=== PATIENT | female | born 1945 | race Caucasian/White ===

== ENCOUNTER 2019-10-29 22:21 | Observation (INO) ==
[2019-10-29 23:34] LABS: Basophils % 0.2 %; Eosinophils % 0.2 %; Hematocrit 30.8 % (35.3-44.9); Hemoglobin 10.4 g/dL (11.5-15.4); Immature Granulocytes % 0.7 % (0-4); Lymphocytes # 0.4 K/mcL (0.6-4.6); Mean Corpuscular HGB Conc 33.8 g/dL (31.6-35.5); Mean Corpuscular Hemoglobin 29.1 pg (28.0-33.3); Mean Platelet Volume 10.2 fL (9.4-12.4); Monocytes # 0.4 K/mcL (0.0-1.3); Monocytes % 3.8 %; Neutrophils # 9.4 K/mcL (1.6-8.9); Platelet Count 225 K/mcL (140-400); Red Blood Count 3.58 M/mcL (3.82-4.97); Red Cell Distribution Width 14.4 % (11.5-14.5); Segmented Neutrophils % 91.1 %; White Blood Count 10.3 K/mcL (4.3-11.1)
[2019-10-29 23:36] LABS: INR 1.2; Prothrombin Time 13.8 Seconds (9.4-12.1)
[2019-10-29 23:39] LABS: Activated Partial Thrombo Time 27.3 Seconds (26.0-36.0)
[2019-10-29 23:46] LABS: Alanine Aminotransferase 7 Units/L (7-52); Albumin 3.7 g/dL (3.5-5.7); Albumin/Globulin Ratio 1.3 (1.1-2.2); Alkaline Phosphatase 80 Units/L (34-104); Aspartate Amino Transferase 9 Units/L (13-39); BUN/Creatinine Ratio 19 (6-26); Bilirubin,Total 0.4 mg/dL (0.3-1.0); Blood Urea Nitrogen 16 mg/dL (8-23); Carbon Dioxide 21 mEq/L (23-29); Chloride 101 mEq/L (98-107); Globulin 2.8 g/dL (2.4-3.5); Glucose 160 mg/dL (70-105); Osmolality,Calculated 277 (280-300); Sodium 131 mEq/L (136-145); Total Protein 6.5 g/dL (6.4-8.9); eGFR For African Americans > 60 (> 60); eGFR For Non-African Americans > 60 (> 60)
[2019-10-29 23:47] LABS: Troponin I < 0.03 ng/mL (< 0.04)
[2019-10-30 00:14] LABS: Bilirubin,Urine Negative (Negative); Blood,Urine Small (Negative); Clarity,Urine Clear (Clear); Color,Urine Yellow (Yellow); Glucose,Urine (UA) Normal (Normal); Ketones,Urine 15 mg/dL (Negative); Leukocyte Esterase,Urine Small (Negative); Nitrite,Urine Positive (Negative); PH,Urine 5.5 pH Units (5.0-8.0); Protein,Urine 100 mg/dL (Neg-Trace); Urobilinogen,Urine Normal (Normal)
[2019-10-30 00:22] LABS: Squamous Epithelial Cell,Urine Many per lpf (None-Few); WBC,Urine 30-50 per hpf (0-3)
[2019-10-30 00:23] LABS: Bacteria,Urine Many per hpf (None-Few)
[2019-10-30] MEDS ORDERED: cefTRIAXone 1,000 MG in Water for inj. (sterile) 10 ML IVP ONE (01:00)
[2019-10-30] MEDS ORDERED: cefTRIAXone 2,000 MG in Water for inj. (sterile) 20 ML IVP ONE (01:22)
[2019-10-30] MEDS ORDERED: D5% in 0.45% NACL 1,000 ML IVC SCH (02:19)
[2019-10-30] MEDS ORDERED: Ondansetron ODT 4 MG TAB.RAPDIS SL PRN (02:19)
[2019-10-30] MEDS ORDERED: Mag Hydrox/Al Hydrox/Simeth 30 ML UDC PO PRN (02:19)
[2019-10-30] MEDS ORDERED: Naloxone 0.4 MG/ML INJ IVP PRN (02:19)
[2019-10-30] MEDS: FISH OIL 500 MG PO SCH ×2 (07:38→19:33)
[2019-10-30] MEDS: Aspirin 81 MG TAB.CHEW PO SCH (07:39)
[2019-10-30] MEDS: Multivit/Ca/Min/Fe/FA 1 TAB TABLET PO SCH (07:39)
[2019-10-30] MEDS: Cholecalciferol (D-3) 1,000 UNIT (25MCG) TABLET PO SCH (07:39)
[2019-10-30] MEDS: 0.9 % Sodium Chloride w KCl 20 MEQ/1,000 ML MLS IVC SCH (09:14)
[2019-10-30] MEDS: Nystatin POWDER 30 GM BOTTLE TP SCH ×2 (11:30→19:33)
[2019-10-30] MEDS: cefTRIAXone 1,000 MG in Water for inj. (sterile) 10 ML IVP SCH (17:16)
[2019-10-30] MEDS: *HR* Enoxaparin 40 MG/0.4 ML SYRINGE SQ SCH (17:17)
[2019-10-30] MEDS ORDERED: cefTRIAXone 1,000 MG in Water for inj. (sterile) 10 ML IVP SCH (18:00)
[2019-10-30] MEDS: Acetaminophen 325 MG TABLET PO PRN (23:43)
[2019-10-31] MEDS: 0.9 % Sodium Chloride w KCl 20 MEQ/1,000 ML MLS IVC SCH (05:21)
[2019-10-31 05:45] LABS: Hemoglobin 10.3 g/dL (11.5-15.4); Mean Corpuscular HGB Conc 32.2 g/dL (31.6-35.5); Mean Corpuscular Hemoglobin 28.6 pg (28.0-33.3); Mean Corpuscular Volume 88.9 fL (83.0-100.0); Mean Platelet Volume 9.9 fL (9.4-12.4); Platelet Count 207 K/mcL (140-400); Red Cell Distribution Width 14.6 % (11.5-14.5); White Blood Count 6.5 K/mcL (4.3-11.1)
[2019-10-31 06:01] LABS: Alanine Aminotransferase 8 Units/L (7-52); Albumin 3.3 g/dL (3.5-5.7); Albumin/Globulin Ratio 1.2 (1.1-2.2); Alkaline Phosphatase 82 Units/L (34-104); Aspartate Amino Transferase 12 Units/L (13-39); BUN/Creatinine Ratio 14 (6-26); Bilirubin,Total 0.3 mg/dL (0.3-1.0); Blood Urea Nitrogen 12 mg/dL (8-23); Calcium 8.9 mg/dL (8.6-10.3); Carbon Dioxide 24 mEq/L (23-29); Chloride 107 mEq/L (98-107); Globulin 2.7 g/dL (2.4-3.5); Glucose 102 mg/dL (70-105); Osmolality,Calculated 286 (280-300); Potassium 3.7 mEq/L (3.5-5.1); Sodium 138 mEq/L (136-145); eGFR For African Americans > 60 (> 60); eGFR For Non-African Americans > 60 (> 60)
[2019-10-31] MEDS: FISH OIL 500 MG PO SCH ×2 (08:47→20:03)
[2019-10-31] MEDS: Nystatin POWDER 30 GM BOTTLE TP SCH ×2 (09:04→20:02)
[2019-10-31] MEDS: Aspirin 81 MG TAB.CHEW PO SCH (09:04)
[2019-10-31] MEDS: Multivit/Ca/Min/Fe/FA 1 TAB TABLET PO SCH (09:04)
[2019-10-31] MEDS: Cholecalciferol (D-3) 1,000 UNIT (25MCG) TABLET PO SCH (09:04)
[2019-10-31] MEDS: *HR* Enoxaparin 40 MG/0.4 ML SYRINGE SQ SCH (17:18)
[2019-10-31] MEDS: cefTRIAXone 1,000 MG in Water for inj. (sterile) 10 ML IVP SCH (17:18)
[2019-10-31] MEDS: Acetaminophen 325 MG TABLET PO PRN (20:01)
[2019-11-01] MEDS: 0.9 % Sodium Chloride w KCl 20 MEQ/1,000 ML MLS IVC SCH (03:54)
[2019-11-01] MEDS: Aspirin 81 MG TAB.CHEW PO SCH (08:06)
[2019-11-01] MEDS: Multivit/Ca/Min/Fe/FA 1 TAB TABLET PO SCH (08:06)
[2019-11-01] MEDS: Cholecalciferol (D-3) 1,000 UNIT (25MCG) TABLET PO SCH (08:06)
[2019-11-01] MEDS: FISH OIL 500 MG PO SCH (08:07)
[2019-11-01] MEDS: Nystatin POWDER 30 GM BOTTLE TP SCH ×2 (08:09→21:09)
[2019-11-01 09:01] LABS: % Iron Saturation 7 % (15-50); Iron 15 mcg/dL (50-170); Transferrin 157 mg/dL (203-362)
[2019-11-01] MEDS: cefTRIAXone 1,000 MG in Water for inj. (sterile) 10 ML IVP SCH ×2 (17:50→21:00)
[2019-11-01] MEDS: *HR* Enoxaparin 40 MG/0.4 ML SYRINGE SQ SCH (17:50)
[2019-11-01] MEDS ORDERED: *HR* Labetalol 20 MG/4 ML SYRINGE IVP PRN (20:00)
[2019-11-02 05:46] LABS: Basophils % 0.7 %; Eosinophils # 0.2 K/mcL (0.0-0.6); Eosinophils % 5.1 %; Hematocrit 27.9 % (35.3-44.9); Hemoglobin 9.2 g/dL (11.5-15.4); Immature Granulocytes % 0.5 % (0-4); Lymphocytes # 0.9 K/mcL (0.6-4.6); Lymphocytes % 21.7 %; Mean Corpuscular Hemoglobin 28.7 pg (28.0-33.3); Mean Corpuscular Volume 86.9 fL (83.0-100.0); Mean Platelet Volume 10.1 fL (9.4-12.4); Monocytes # 0.3 K/mcL (0.0-1.3); Monocytes % 7.2 %; Neutrophils # 2.8 K/mcL (1.6-8.9); Platelet Count 239 K/mcL (140-400); Red Blood Count 3.21 M/mcL (3.82-4.97); Red Cell Distribution Width 14.1 % (11.5-14.5); Segmented Neutrophils % 64.8 %; White Blood Count 4.3 K/mcL (4.3-11.1)
[2019-11-02 06:00] LABS: BUN/Creatinine Ratio 18 (6-26); Blood Urea Nitrogen 14 mg/dL (8-23); Calcium 8.7 mg/dL (8.6-10.3); Carbon Dioxide 26 mEq/L (23-29); Chloride 106 mEq/L (98-107); Glucose 103 mg/dL (70-105); Osmolality,Calculated 291 (280-300); Potassium 3.5 mEq/L (3.5-5.1); Sodium 140 mEq/L (136-145); eGFR For African Americans > 60 (> 60); eGFR For Non-African Americans > 60 (> 60)
[2019-11-02] MEDS ORDERED: amLODIPine 5 MG TABLET PO SCH (09:00)
[2019-11-02] MEDS: Multivit/Ca/Min/Fe/FA 1 TAB TABLET PO SCH (09:05)
[2019-11-02] MEDS: Nystatin POWDER 30 GM BOTTLE TP SCH (09:06)
[2019-11-02] MEDS: Cholecalciferol (D-3) 1,000 UNIT (25MCG) TABLET PO SCH (09:06)
[2019-11-02] MEDS: Aspirin 81 MG TAB.CHEW PO SCH (09:06)
[2019-11-02 11:48] VITALS: BP 127/72
== END 2019-11-02 14:17 | disposition home or self-care (01) ==
LOC: EMEROOGRE 22:21 → INPGRE 22:21
PROVIDERS: ADMIT Family Medicine; ATTEND Family Medicine

== ENCOUNTER 2021-07-31 23:00 | Inpatient (IN) ==
[2021-07-31] MEDS ORDERED: 0.9 % Sodium Chloride 1,000 ML IVC ONE (23:26)
[2021-08-01 00:26] LABS: Basophils # 0.1 K/mcL (0.0-0.2); Basophils % 0.4 %; Eosinophils # 0.1 K/mcL (0.0-0.6); Eosinophils % 0.4 %; Hematocrit 36.8 % (35.3-44.9); Hemoglobin 11.5 g/dL (11.5-15.4); Immature Granulocytes % 0.5 % (0-4); Lymphocytes # 0.5 K/mcL (0.6-4.6); Lymphocytes % 4.6 %; Mean Corpuscular HGB Conc 31.3 g/dL (31.6-35.5); Mean Corpuscular Hemoglobin 29.6 pg (28.0-33.3); Mean Corpuscular Volume 94.6 fL (83.0-100.0); Mean Platelet Volume 9.8 fL (9.4-12.4); Monocytes # 0.4 K/mcL (0.0-1.3); Monocytes % 3.5 %; Platelet Count 367 K/mcL (140-400); Red Blood Count 3.89 M/mcL (3.82-4.97); Segmented Neutrophils % 90.6 %; White Blood Count 11.5 K/mcL (4.3-11.1)
[2021-08-01 00:29] LABS: Neutrophils # 10.4 K/mcL (1.6-8.9)
[2021-08-01 00:32] LABS: INR 1.1; Prothrombin Time 12.4 Seconds (9.4-12.1)
[2021-08-01 00:35] LABS: Activated Partial Thrombo Time 29.2 Seconds (26.0-36.0)
[2021-08-01 00:40] LABS: VBG HCO3 21 mEq/L (21-27); VBG PCO2 44 mmHg (41-51); VBG PO2 23 mmHg (25-50)
[2021-08-01 00:43] LABS: Troponin I < 0.03 ng/mL (< 0.04)
[2021-08-01] MEDS ORDERED: Isovue-370 500 ML BOTTLE IVP ONE (00:54)
[2021-08-01 01:19] LABS: Blood Urea Nitrogen 27 mg/dL (8-23); Calcium 9.4 mg/dL (8.6-10.3); Chloride 104 mEq/L (98-107); Glucose 130 mg/dL (70-105); Osmolality,Calculated 283 (280-300); Potassium 5.3 mEq/L (3.5-5.1); Sodium 133 mEq/L (136-145)
[2021-08-01 02:40] LABS: Bilirubin,Urine Moderate (Negative); Blood,Urine Negative (Negative); Clarity,Urine Clear (Clear); Color,Urine Yellow (Yellow); Glucose,Urine (UA) Normal (Normal); Ketones,Urine 15 mg/dL (Negative); Leukocyte Esterase,Urine Negative (Negative); Nitrite,Urine Negative (Negative); PH,Urine 5.5 pH Units (5.0-8.0); Protein,Urine 100 mg/dL (Neg-Trace); Specific Gravity,Urine >= 1.030 (1.010-1.025); Urobilinogen,Urine Normal (Normal)
[2021-08-01 02:45] LABS: BUN/Creatinine Ratio 19 (6-26); Carbon Dioxide 18 mEq/L (23-29); eGFR For African Americans 45 (> 60); eGFR For Non-African Americans 37 (> 60)
[2021-08-01 02:48] LABS: Bacteria,Urine None Seen per hpf (None-Few); Hyaline Casts,Urine Few per lpf (None Seen); RBC,Urine 0-3 per hpf (0-3); Squamous Epithelial Cell,Urine Few per hpf (None-Few)
[2021-08-01] MEDS ORDERED: Insulin Human Regular 10 UNIT in 0.9 % Sodium Chloride 10 ML IV ONE (02:49)
[2021-08-01] MEDS ORDERED: *HR* Dextrose 50 % in Water (Vial) 50 ML VIAL IVP ONE (02:49)
[2021-08-01] MEDS ORDERED: Albuterol 2.5 MG/3 ML NEBULIZER IH ONE (02:49)
[2021-08-01] MEDS ORDERED: *HR* OxyCODONE/APAP 5/325 TABLET PO ONE (03:35)
[2021-08-01] MEDS ORDERED: Ondansetron ODT 4 MG TAB.RAPDIS SL ONE (03:35)
[2021-08-01] MEDS: atenoloL 50 MG TABLET PO SCH (08:55)
[2021-08-01] MEDS: Sennosides/Docusate Sodium TABLET PO SCH ×2 (08:56→20:34)
[2021-08-01] MEDS: Ondansetron ODT 4 MG TAB.RAPDIS SL PRN (12:35)
[2021-08-01] MEDS: Ondansetron 4 MG/2 ML VIAL IVP PRN ×2 (13:41→18:51)
[2021-08-01] MEDS: Gabapentin 100 MG CAPSULE PO SCH (20:34)
[2021-08-01] MEDS: Fluconazole 100 MG TABLET PO SCH (20:35)
[2021-08-01] MEDS: *HR* OxyCODONE/APAP 5/325 TABLET PO PRN (23:17)
[2021-08-02] MEDS: *HR* Enoxaparin 40 MG/0.4 ML SYRINGE SQ SCH (05:14)
[2021-08-02] MEDS: *HR* OxyCODONE/APAP 5/325 TABLET PO PRN ×3 (05:14→21:06)
[2021-08-02 06:10] LABS: Hematocrit 30.5 % (35.3-44.9); Hemoglobin 9.4 g/dL (11.5-15.4); Mean Corpuscular HGB Conc 30.8 g/dL (31.6-35.5); Mean Corpuscular Hemoglobin 29.1 pg (28.0-33.3); Mean Corpuscular Volume 94.4 fL (83.0-100.0); Platelet Count 268 K/mcL (140-400); Red Blood Count 3.23 M/mcL (3.82-4.97); Red Cell Distribution Width 15.3 % (11.5-14.5); White Blood Count 5.5 K/mcL (4.3-11.1)
[2021-08-02 06:32] LABS: Albumin 3.3 g/dL (3.5-5.7); Albumin/Globulin Ratio 1.3 (1.1-2.2); Bilirubin,Total 0.4 mg/dL (0.3-1.0); Calcium 8.7 mg/dL (8.6-10.3); Globulin 2.5 g/dL (2.4-3.5); Magnesium 2.2 mg/dL (1.6-2.6); Potassium 4.4 mEq/L (3.5-5.1); Total Protein 5.8 g/dL (6.4-8.9)
[2021-08-02] MEDS: atenoloL 50 MG TABLET PO SCH (09:38)
[2021-08-02] MEDS: Gabapentin 100 MG CAPSULE PO SCH ×3 (09:38→21:05)
[2021-08-02] MEDS: Sennosides/Docusate Sodium TABLET PO SCH ×2 (09:45→21:05)
[2021-08-02] MEDS ORDERED: 0.9 % Sodium Chloride 1,000 ML IVC SCH (16:15)
[2021-08-02] MEDS: Fluconazole 100 MG TABLET PO SCH (21:05)
[2021-08-02] MEDS: Ondansetron ODT 4 MG TAB.RAPDIS SL PRN (21:17)
[2021-08-03] MEDS: *HR* OxyCODONE/APAP 5/325 TABLET PO PRN ×3 (04:09→23:58)
[2021-08-03] MEDS: Ondansetron ODT 4 MG TAB.RAPDIS SL PRN ×2 (04:13→13:08)
[2021-08-03] MEDS: *HR* Enoxaparin 40 MG/0.4 ML SYRINGE SQ SCH (05:18)
[2021-08-03 07:30] LABS: Basophils % 0.4 %; Eosinophils # 0.2 K/mcL (0.0-0.6); Hematocrit 31.5 % (35.3-44.9); Hemoglobin 9.6 g/dL (11.5-15.4); Immature Granulocytes % 0.4 % (0-4); Lymphocytes # 1.1 K/mcL (0.6-4.6); Lymphocytes % 24.4 %; Mean Corpuscular HGB Conc 30.5 g/dL (31.6-35.5); Mean Corpuscular Hemoglobin 29.4 pg (28.0-33.3); Mean Corpuscular Volume 96.3 fL (83.0-100.0); Mean Platelet Volume 10.4 fL (9.4-12.4); Monocytes # 0.3 K/mcL (0.0-1.3); Monocytes % 5.8 %; Neutrophils # 2.9 K/mcL (1.6-8.9); Platelet Count 216 K/mcL (140-400); Red Blood Count 3.27 M/mcL (3.82-4.97); Red Cell Distribution Width 15.3 % (11.5-14.5); White Blood Count 4.5 K/mcL (4.3-11.1)
[2021-08-03 07:45] LABS: Calcium 8.5 mg/dL (8.6-10.3); Potassium 4.5 mEq/L (3.5-5.1)
[2021-08-03] MEDS: atenoloL 50 MG TABLET PO SCH (08:56)
[2021-08-03] MEDS: Gabapentin 100 MG CAPSULE PO SCH ×3 (08:56→21:20)
[2021-08-03] MEDS: Sennosides/Docusate Sodium TABLET PO SCH ×3 (08:57→21:20)
[2021-08-03] MEDS: Fluconazole 100 MG TABLET PO SCH (21:20)
[2021-08-04] MEDS: *HR* Enoxaparin 40 MG/0.4 ML SYRINGE SQ SCH (06:07)
[2021-08-04] MEDS: Gabapentin 100 MG CAPSULE PO SCH ×3 (09:07→21:51)
[2021-08-04] MEDS: atenoloL 50 MG TABLET PO SCH (09:07)
[2021-08-04] MEDS: Sennosides/Docusate Sodium TABLET PO SCH ×2 (09:07→21:51)
[2021-08-04] MEDS: *HR* OxyCODONE/APAP 5/325 TABLET PO PRN ×2 (09:07→17:18)
[2021-08-04 18:15] LABS: Bilirubin,Urine Negative (Negative); Blood,Urine Moderate (Negative); Clarity,Urine Slightly Cloudy (Clear); Glucose,Urine (UA) Normal (Normal); Ketones,Urine Negative (Negative); Leukocyte Esterase,Urine Moderate (Negative); Nitrite,Urine Positive (Negative); PH,Urine 5.5 pH Units (5.0-8.0); Protein,Urine Trace mg/dL (Neg-Trace); Urobilinogen,Urine Normal (Normal)
[2021-08-04 18:39] LABS: Color,Urine Yellow (Yellow)
[2021-08-04 18:40] LABS: Amorphous Sediment,Urine Few per hpf (None-Few); Bacteria,Urine Moderate per hpf (None-Few); Squamous Epithelial Cell,Urine Few per hpf (None-Few)
[2021-08-04] MEDS: Fluconazole 100 MG TABLET PO SCH (21:50)
[2021-08-05 04:39] VITALS: RESP 16; O2SAT 97
[2021-08-05] MEDS: *HR* Enoxaparin 40 MG/0.4 ML SYRINGE SQ SCH (06:05)
[2021-08-05] MEDS: *HR* OxyCODONE/APAP 5/325 TABLET PO PRN (06:05)
[2021-08-05] MEDS: Sennosides/Docusate Sodium TABLET PO SCH (07:40)
[2021-08-05] MEDS: Gabapentin 100 MG CAPSULE PO SCH (07:41)
[2021-08-05 07:46] VITALS: BP 133/71; PULSE 78; TEMP 97.9
[2021-08-05] MEDS ORDERED: atenoloL 25 MG TABLET PO SCH (09:00)
== END 2021-08-05 11:18 | disposition home or self-care (01) | DRG 312 ==
LOC: EMEROOGRE 23:00 → INPGRE 23:00 → OBSVTOIN 08-01 05:15 → INPGRE 08-01 05:28
PROVIDERS: ADMIT Internal Medicine; ATTEND Internal Medicine

== ENCOUNTER 2021-08-05 08:54 | Inpatient (IN) ==
[2021-08-05] MEDS: *HR* OxyCODONE/APAP 5/325 TABLET PO PRN ×2 (12:16→21:23)
[2021-08-05] MEDS: Sennosides/Docusate Sodium TABLET PO SCH (21:23)
[2021-08-05] MEDS: Gabapentin 300 MG CAPSULE PO SCH (21:23)
[2021-08-05] MEDS: Cefdinir 300 MG CAPSULE PO SCH (21:23)
[2021-08-06 04:52] LABS: Basophils % 0.3 %; Eosinophils # 0.3 K/mcL (0.0-0.6); Eosinophils % 3.8 %; Hematocrit 29.6 % (35.3-44.9); Hemoglobin 9.3 g/dL (11.5-15.4); Immature Granulocytes % 0.5 % (0-4); Lymphocytes # 1.1 K/mcL (0.6-4.6); Lymphocytes % 16.1 %; Mean Corpuscular HGB Conc 31.4 g/dL (31.6-35.5); Mean Corpuscular Hemoglobin 29.4 pg (28.0-33.3); Mean Corpuscular Volume 93.7 fL (83.0-100.0); Mean Platelet Volume 10.4 fL (9.4-12.4); Monocytes # 0.3 K/mcL (0.0-1.3); Monocytes % 4.1 %; Neutrophils # 4.9 K/mcL (1.6-8.9); Platelet Count 260 K/mcL (140-400); Red Blood Count 3.16 M/mcL (3.82-4.97); Segmented Neutrophils % 75.2 %; White Blood Count 6.5 K/mcL (4.3-11.1)
[2021-08-06 05:06] LABS: Calcium 8.8 mg/dL (8.6-10.3); Potassium 4.4 mEq/L (3.5-5.1)
[2021-08-06] MEDS: *HR* Enoxaparin 40 MG/0.4 ML SYRINGE SQ SCH (06:09)
[2021-08-06] MEDS: *HR* OxyCODONE/APAP 5/325 TABLET PO PRN (06:15)
[2021-08-06] MEDS: Cyanocobalamin (B-12) 1,000 MCG TABLET PO SCH (08:19)
[2021-08-06] MEDS: Cefdinir 300 MG CAPSULE PO SCH ×2 (08:19→20:53)
[2021-08-06] MEDS: atenoloL 50 MG TABLET PO SCH (08:20)
[2021-08-06] MEDS: Sennosides/Docusate Sodium TABLET PO SCH ×2 (08:20→20:53)
[2021-08-06] MEDS: Gabapentin 300 MG CAPSULE PO SCH ×3 (08:20→20:53)
[2021-08-07] MEDS: *HR* Enoxaparin 40 MG/0.4 ML SYRINGE SQ SCH (06:04)
[2021-08-07] MEDS: atenoloL 50 MG TABLET PO SCH (09:30)
[2021-08-07] MEDS: Cefdinir 300 MG CAPSULE PO SCH ×2 (09:30→20:47)
[2021-08-07] MEDS: Gabapentin 300 MG CAPSULE PO SCH ×3 (09:30→20:47)
[2021-08-07] MEDS: Sennosides/Docusate Sodium TABLET PO SCH ×2 (09:30→20:47)
[2021-08-07] MEDS: Cyanocobalamin (B-12) 1,000 MCG TABLET PO SCH (09:30)
[2021-08-07] MEDS: *HR* OxyCODONE/APAP 5/325 TABLET PO PRN (20:47)
[2021-08-08] MEDS: *HR* Enoxaparin 40 MG/0.4 ML SYRINGE SQ SCH (05:14)
[2021-08-08 07:23] VITALS: RESP 16
[2021-08-08] MEDS: Sennosides/Docusate Sodium TABLET PO SCH (07:24)
[2021-08-08] MEDS: atenoloL 50 MG TABLET PO SCH (07:24)
[2021-08-08] MEDS: Gabapentin 300 MG CAPSULE PO SCH ×2 (07:25→15:59)
[2021-08-08] MEDS: Cefdinir 300 MG CAPSULE PO SCH (07:25)
[2021-08-08] MEDS: Cyanocobalamin (B-12) 1,000 MCG TABLET PO SCH (07:25)
[2021-08-08 11:54] VITALS: BP 103/66; PULSE 77; TEMP 98; O2SAT 97
[2021-08-09] MEDS ORDERED: atenoloL 50 MG TABLET PO SCH (09:00)
== END 2021-08-08 17:30 | DRG 683 ==
LOC: INPGRE 11:19
PROVIDERS: ADMIT Family Medicine; ATTEND Family Medicine